=== PATIENT | male | born 1940 | race African-American/Black ===

== ENCOUNTER 2016-05-14 18:23 | Emergency (ER) | payer OTHER, MEDICARE ==
[~2016-05-14] VITALS: Ht 180.3 cm; Wt 85.0 kg
[~2016-05-14 18:23] MED LIST: BLOOD PRESSURE PO; COLY4000S PO; LANTUSP SQ; PAIN PILL PO; PANT20 PO
[2016-05-14 18:26] VITALS: BP 233/113; PULSE 82; RESP 20; TEMP 97.7; O2SAT 96
[2016-05-14] MEDS ORDERED: LANTUS2P SQ (21:13)
[2016-05-14] MEDS ORDERED: OMEP20TA PO (21:13)
[2016-05-14] MEDS ORDERED: SIMV20TA PO (21:13)
[2016-05-14] MEDS ORDERED: LISI40TA PO (21:13)
[2016-05-14 21:16] VITALS: BP 196/108; PULSE 74; RESP 18; O2SAT 98
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
[2016-05-14] MEDS ORDERED: cloNIDine HCL 0.1 MG TAB PO ONE (21:45)
[2016-05-14 22:34] VITALS: BP 197/93; PULSE 73; RESP 18; O2SAT 96
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
[2016-05-14] MEDS ORDERED: TYLETAB34 PO (23:05)
[2016-05-15 00:12] VITALS: BP 177/93
== END 2016-05-15 00:37 | disposition home or self-care (01) ==
LOC: NEPA 18:23
DX: T14.8 Other injury of unspecified body region (principal); S60.512A Abrasion of left hand, initial encounter; R51 Headache; M25.511 Pain in right shoulder; M25.561 Pain in right knee; V43.52XA Car driver injured in collision with other type car in traffic accident, initial encounter
CPT/HCPCS: 70150; 73030; 73560; 99284